=== PATIENT | male | born 1980 | race Caucasian/White ===

== ENCOUNTER 2017-06-21 08:11 | Inpatient (IN) | payer BC ==
[~2017-06-21] VITALS: Ht 172.7 cm; Wt 79.4 kg
[2017-06-21] VITALS (9 sets, daily range): BP systolic 129–149; BP diastolic 59–89; PULSE 64–86; RESP 11–18; Ht 172.7 cm; Wt 79.4 kg
[~2017-06-21 08:11] MED LIST: ROPIVACAINE 0.2% 60 ML, CLONIDINE 100 MCG, EPINEPHrine 0.3 MG, KETOROLAC 30 MG, SOD CHL... INJ SCH
[2017-06-21] MEDS ORDERED: CEFAZOLIN 2 GM/50 ML (PMX) 50 ML IVPB SCH (09:30)
--- NOTE | 2017-06-21 10:22 | HPN ---
Date/Time of Note Date/Time of Note DATE: 06/21/17 TIME: 10:22 Interval H&P Admission Note Pt. seen H&P reviewed: No system changes VIVEK QUEEN PA-C Jun 21, 2017 10:22
[2017-06-21] MEDS ORDERED: ROPIVACAINE 0.5 % 30 ML VIAL ONE (10:59)
[2017-06-21] MEDS ORDERED: POLYMYXIN/BACITRACIN 1L IRRIG IRR ONE (12:25)
[2017-06-21] MEDS ORDERED: FENTAnyl 50 MCG/ML VIAL ONE (12:58)
--- NOTE | 2017-06-21 13:21 | SIPON ---
Date/Time of Note Date/Time of Note DATE: 06/21/17 TIME: 13:20 Operative Report Preoperative Diagnosis left shoulder DJD Postoperative Diagnosis same Operation/Procedure Performed left shoulder hemiarthroplasty Surgeon see signature line senior executive assistant Dr. Knowles Second assist: VIVEK QUEEN PA-C Anesthesia: general Estimated blood loss: 250 - 300 ml's Transfusion Required none Specimen bone Grafts/Implants DePuy 48 mm hemicap Complications none MINAL MOYER Jun 21, 2017 13:21
[2017-06-21] MEDS ORDERED: HYDROmorphONE (0.2 MG/ML) 10ML SYG IV PRN ×3 (13:30)
[2017-06-21] MEDS ORDERED: hydrALAzine 20 MG INJ IV PRN (13:30)
[2017-06-21] MEDS ORDERED: TRIMETHOBENZAMIDE 100 MG/ML VIAL IM PRN ×2 (13:30→14:00)
[2017-06-21] MEDS ORDERED: OXYCODONE/ACETAMINOPHEN (5/325) TAB PO PRN ×2 (13:30)
[2017-06-21] MEDS ORDERED: ONDANSETRON 4 MG INJ IV PRN ×2 (13:30→14:00)
[2017-06-21] MEDS ORDERED: DIPHENHYDRAMINE 50 MG INJ IV PRN (13:30)
[2017-06-21] MEDS ORDERED: FENTAnyl 50 MCG/ML VIAL IV PRN ×3 (13:30)
[2017-06-21] MEDS ORDERED: EPHEDrine SULFATE 50 MG/5 ML SYG IV PRN (13:30)
[2017-06-21] MEDS ORDERED: MEPERIDINE 25 MG INJ IV PRN (13:30)
[2017-06-21] MEDS ORDERED: LABETALOL HCL 20MG INJ IV PRN (13:30)
[2017-06-21] MEDS ORDERED: IPRATROPIUM (NEB) 0.5 MG/2.5 ML AMP HHN PRN (13:30)
[2017-06-21] MEDS ORDERED: ALBUTEROL 0.083% (NEB) 2.5 MG/3 ML AMP HHN PRN (13:30)
[2017-06-21] MEDS ORDERED: MIDAZOLAM 1 MG/ML 2 ML INJ IV PRN (13:30)
--- NOTE | 2017-06-21 13:54 | PDOCDIS ---
Discharge Instructions DIAGNOSIS Discharge Diagnosis Status post left partial shoulder arthroplasty. CONDITION Patient Condition: Good HOME CARE INSTRUCTIONS: Diet Instructions: Regular ACTIVITY: Activity Restrictions: No Sexual Activity Do not Drive Do not operate Machinery Do not operate Power Tool Avoid Heavy Housework No Weight Bearing (No weightbearing to the left upper extremity. Remain in sling.) Special Exercises (Pendulum exercises and passive range of motion okay.) Bathing Restrictions: Shower (Mepilex dressing to the surgical region to remain on until postoperative visit. Keep this area dry.) FOLLOW UP/APPOINTMENTS Follow-up Plan Follow-up at postoperative visit provided to you at your preoperative examination. VIVEK QUEEN PA-C Jun 21, 2017 13:54
[2017-06-21] MEDS ORDERED: LOPERAMIDE 2 MG CAP PO PRN (14:00)
[2017-06-21] MEDS ORDERED: BISACODYL 10 MG SUPP PR PRN (14:00)
[2017-06-21] MEDS ORDERED: MAGNESIUM HYDROXIDE 30ML CUP PO PRN (14:00)
[2017-06-21] MEDS ORDERED: NA PHOSPHATE/BIPHOS 133 ML ENEMA PR PRN (14:00)
[2017-06-21] MEDS ORDERED: NACL 0.9% 3 ML SYG IV SCH (14:00)
[2017-06-21] MEDS ORDERED: ASPIRIN (EC) 325 MG TAB PO ONE (14:00)
[2017-06-21] MEDS ORDERED: morphine 2 MG INJ IV PRN (14:00)
[2017-06-21] MEDS ORDERED: HYDROCODONE/APAP (5/325) TAB PO PRN ×2 (14:00)
[2017-06-21] MEDS ORDERED: FERROUS FUMARATE (SR) TAB PO SCH (21:00)
[2017-06-21] MEDS ORDERED: SENNA/DOCUSATE NA (8.6MG/50MG) TAB PO SCH (21:00)
[2017-06-23] MEDS ORDERED: MAGNESIUM HYDROXIDE 30ML CUP PO SCH (21:00)
--- NOTE | 2017-06-30 11:45 | OPR ---
Date/Time of Note Date/Time of Note DATE: 06/30/17 TIME: 11:36 Operative Report Procedure Date: Jun 21, 2017 Preoperative Diagnosis left shoulder DJD Postoperative Diagnosis same Operation/Procedure Performed left shoulder hemiarthroplasty Surgeon see signature line Wet Machine Operator Jamal Gonzalez Anesthesia Type: general Estimated Blood Loss: 100 - 150 ml's Transfusion none Specimen bone Grafts/Implants 48 mm hemicap from DePuy Tubes/Drains none Complications none Pt Condition Post Procedure: stable Disposition: PACU Indications THe patient is a 36 yr old male with severe DJD of the left shoulder Procedure Description The patient was placed in a beach chair position. The left shoulder was prepped and draped in the usual manner. Preop antibiotics were administered. The left shoulder was approached anteriorly. A deltopectoral approach was used. The subscapularis was opened 1 cm medial to the biceps tendon. A biceps tenodesis was done. There was severe DJD of the shoulder with osteophytes and loss of cartilage. The shoulder was externally rotated and extended. The humeral head was prepared for a 48 mm hemicap with reamers and osteophytes were removed with rongeurs. A trial was inserted and the shoulder found to have full ROM with good stability. After this, the shoulder was irrigated and dried. The final 48 mm hemicap component was placed and the shoulder closed in layers including #1 Vicryl for deep fascia, 2,0 vicryl for subcutaneous tissue and 3,0 monocryl for skin. The wound was injected with marcaine and toradol and the patient transferred to the recovery room in stable condition. MINAL MOYER Jun 30, 2017 11:45
--- NOTE | 2017-07-04 10:13 | DS ---
Date/Time of Note Date/Time of Note DATE: 07/04/17 TIME: 10:10 Discharge Summary Admission/Discharge Info Admit Date/Time Jun 21, 2017 at 08:11 Discharge Date/Time Jun 21, 2017 at 15:16 Discharge Diagnosis Status post left partial shoulder arthroplasty. Patient Condition: Good Hospital Course On the day of admission, the patient underwent Left Partial shoulder arthroplasty Intraoperative complications: None Postoperative complications: None The patient was given prophylactic antibiotics and anticoagulants. On the day of surgery and first postoperative day patient was started on gait training and was taught usual restrictions following Shoulder replacement Patient was discharged on the same day. Observe for about 8 hours prior to discharge. Discharge Temperature:97 The patient was discharged home with home health. Arrangements were made for visiting nurses and home health/physical therapy. The patient will be seen in office at scheduled postoperative evaluation date given on their preoperative exam. Should patient complain of any problems prior to scheduled postoperative evaluation date, they may call into outpatient clinic to determine if they need to be scheduled at sooner appointment to be seen immediately if needed. Discharge medications: As per medication reconciliation form Diet: Same as preadmission diet. This is Vivek Tenorio PA-C dictating discharge summary for Dr. Horn. Home Meds No Active Prescriptions or Reported Meds Follow-up Plan Follow-up at postoperative visit provided to you at your preoperative examination. Primary Care Provider Not On Staff Doctor VIVEK QUEEN PA-C Jul 04, 2017 10:13
== END 2017-06-21 15:16 | disposition home health service (06) | DRG 483 ==
LOC: REC 08:11
PROVIDERS: ADMIT Orthopaedic Surgery; ATTEND Orthopaedic Surgery
PROC: 0LS40ZZ Reposition Left Upper Arm Tendon, Open Approach (ICD-10-PCS; 2017-06-21)
PROC: 0RRK0J6 Replacement of Left Shoulder Joint with Synthetic Substitute, Humeral Surface, Open Approach (ICD-10-PCS; principal; 2017-06-21 10:00)
DX: M19.012 Primary osteoarthritis, left shoulder (principal)
CPT/HCPCS: 87081; J0171; J0690; J0735; J1100; J1885; J2250; J2405; J2710; J2795; J3010